=== PATIENT | male | born 1990 | race Caucasian/White ===

== ENCOUNTER 2016-10-30 16:00 | Inpatient (IN) | payer OTHER ==
[~2016-10-30] VITALS: Ht 185.4 cm; Wt 68.9 kg
--- NOTE | ~2016-10-30 | PA ---
Unit #: [id number] #: [id number] Patient: AGNIESZKA NUNEZ [id number] [place] [address] [id number] I MR#: [id number] NAME: AGNIESZKA NUNEZ ROOM: 82 Age: 26 Sex: M Admission Date: 10/30/2016 : 1990 Date of Assessment: 10/31/2016 Attending Physician: Remberto Coy M.D. Admitting Physician: Remberto Coy M.D. Primary Care Physician: Primary Care Physician No PSYCHIATRIC ASSESSMENT IDENTIFYING INFORMATION The patient is a 26-year-old white male admitted to the hospital with a history of alcohol, Xanax, Methamphetamine, and heroin abuse. CHIEF COMPLAINT Need to detox. INFORMANT(S) Patient, reliability is fair. HISTORY OF PRESENT ILLNESS The patient is a 26-year-old white male who reports no previous chemical dependence or other psychiatric treatment. He is admitted given his increasing substance use including abuse of alcohol, Xanax, methamphetamine, and heroin. He does admit to intravenous heroin use. The patient denied suicidal ideation at the time of admission. On admission, the patient's COWS score was a 14 and his CIWA 20. The patient denies current suicidal or homicidal ideation and denies any psychotic symptoms. He denies prior chemical dependence or other psychiatric treatment. PAST PSYCHIATRIC HISTORY Noncontributory. PAST MEDICAL HISTORY The patient has a history of lymphoma at the age of 13 and reports a history of kidney failure at the age of 6 or 7. He is currently on no prescribed medications. MEDICATIONS None. ALLERGIES None FAMILY HISTORY Noncontributory. SOCIAL HISTORY The patient reports substance use as noted previously. 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 MENTAL STATUS EXAMINATION Examination at this time reveals the patient to be a well-developed Unit #: [id number] #: [id number] Patient: AGNIESZKA NUNEZ well-nourished white male appearing stated age. He appears to be in moderate physical distress related to substance withdrawal. He is awake, alert, and oriented in all spheres. His mood is dysphoric, his affect constricted. Speech is generally well coherent. There are no gross deficits in memory or cognition noted. Intelligence is judged to be in the average range based on fund of knowledge. The patient is cooperative throughout the interview. He is currently denying suicidal or homicidal ideation or psychotic features. Judgment and insight appear to be intact. ASSETS AND LIABILITIES The patient's assets: Motivation for change. Liabilities: Lack of resources. DIAGNOSTIC IMPRESSION 1. Alcohol use disorder. 2. Methamphetamine disorder. 3. Cocaine use disorder. 4. Cannabis use disorder. 5. Sedative hypnotic use disorder. TREATMENT PLAN The patient remains hospitalized for safety and stabilization. Routine detoxification protocol has been initiated. The patient will participate in appropriate order of milieu activities. ESTIMATED LENGTH OF STAY 3 to 5 days. Dictated by... Remberto Coy M.D. Nikki TD: 10/31/2016 14:46 JOB #: [id number] PSYCHIATRIC ASSESSMENT Page 1 of 1 X Remberto Coy MD X PSYCHIATRIC ASSESSMENT
--- NOTE | ~2016-10-30 | HP ---
Unit #: [id number] #: [id number] Patient: AGNIESZKA NUNEZ [id number] [place] [address] [id number] I MR#: [id number] NAME: AGNIESZKA NUNEZ ROOM: P182 Age: 26 Sex: M Admission Date: 10/30/2016 : 1990 Attending Physician: Remberto Coy M.D. Admitting Physician: Remberto Coy M.D. Primary Care Physician: Primary Care Physician No HISTORY AND PHYSICAL HISTORY OF PRESENT ILLNESS The patient is a 26-year-old male admitted to [facility] on 10/30/2016 for polysubstance abuse. PAST MEDICAL HISTORY 1. History of lymphoma at age 13. 2. History of kidney failure as a child. PAST SURGICAL HISTORY None noted. SOCIAL HISTORY He is employed. He lives with his fiance. He smokes 1-1/2 packs of cigarettes daily. Drinks 1 to 2 pints of whiskey per day and uses heroin, methamphetamines, and Xanax. FAMILY MEDICAL HISTORY Noncontributory. ALLERGIES No known drug allergies. CURRENT MEDICATIONS The patient is not on any home medications. REVIEW OF SYSTEMS CONSTITUTIONAL: No fever or chills. HEENT: Denies any sore throat, ear pain or runny nose. CARDIOVASCULAR: Denies chest pain, irregular heart rhythm or palpitations. CHEST: Denies shortness of breath or cough. No hemoptysis. GASTROINTESTINAL: Denies nausea, vomiting, diarrhea or chronic constipation. ENDOCRINE: Denies history of increased thirst or urination. No recent significant weight loss or gain. GENITOURINARY: Denies dysuria, frequency, or hematuria. SKIN: Denies any rashes. HEMATOLOGIC: Denies history of increased bleeding or bruising. MUSCULOSKELETAL: Denies any hot, swollen joints. No generalized muscle pain. NEUROLOGIC: Denies problems with vision or speech. No frequent, severe headaches. No numbness, tingling or weakness in any extremities. Denies loss of bladder or bowel control. Unit #: [id number] #: [id number] Patient: AGNIESZKA NUNEZ PHYSICAL EXAMINATION GENERAL: He is awake, alert, and oriented in no acute distress. VITAL SIGNS: Temperature 98.0, heart rate 70, respirations 18, blood pressure 176/87. HEIGHT: 6 feet 1. WEIGHT: 152 pounds. SKIN: Warm and dry without rash or lesion. HEENT: Normocephalic. TMs not viewed. Oral and nasal passages clear. Conjunctivae clear. PERRLA. EOMs intact. NECK: Supple without lymphadenopathy or thyromegaly. HEART: Regular rate and rhythm without murmur. LUNGS: Clear. ABDOMEN: Soft, nontender. : Not done. EXTREMITIES: No evidence of cyanosis, clubbing or edema. Moves all without focal deficit. NEUROLOGICAL: Grossly within normal limits. Cranial Nerves: II: Visual muller are intact. III, IV AND : Extraocular movements are intact. Pupils are equal, round and reactive to light. V: Facial sensation is grossly normal. VII: Facial movements and expression are normal. VIII: Auditory acuity grossly intact. IX, X: Uvula is midline. Phonation is normal. XI: Patient shrugs shoulders and turns head normally. XII: Tongue protrudes in the midline. Sensory and Motor Function: Sensory and motor sensation is grossly normal. Motor: moves all extremities well. IMPRESSION 1. Psychiatric admission. 2. History of lymphoma. 3. History of kidney failure. RECOMMENDATIONS PSYCHIATRIC: Per psychiatrist. MEDICAL: No contraindication to participate in this facility activities. MEDICAL PROGNOSIS Good. MEDICAL CONDITION Stable. Dictated by... Maria Victoria Leach/konstantin TD: 10/31/2016 15:21 JOB #: [id number] Unit #: [id number] #: [id number] Patient: AGNIESZKA NUNEZ HISTORY AND PHYSICAL Page 1 of 1 X ZENON DE LOS SANTOS APRN HISTORY AND PHYSICAL
--- NOTE | ~2016-10-30 | DS ---
Unit #: [id number] #: [id number] Patient: AGNIESZKA NUNEZ [id number] [facility] [address] [place] [address] [id number] I MR#: [id number] NAME: AGNIESZKA NUNEZ ROOM: 82 Age: 26 Sex: M Admission Date: 10/30/2016 : 1990 Discharge Date: 11/02/2016 Attending Physician: Remberto Coy M.D. Primary Care Physician: Primary Care Physician No DISCHARGE SUMMARY REASON FOR ADMISSION The patient is a 26-year-old white male, admitted with abuse of alcohol, Xanax, methamphetamine, and heroin. HOSPITAL COURSE The patient was admitted to the [facility] unit and placed on routine detoxification protocol to cover alcohol opioids and sedative hypnotics. The patient's detox was a surprisingly uneventful one. He was pleasant and cooperative in his interactions with peers and staff, though his participation within the therapeutic milieu left a bit to be desired. By 11/02/2016, the patient requested discharge and it was so ordered. FINAL DIAGNOSES Alcohol use disorder; methamphetamine use disorder; cocaine use disorder; cannabis use disorder; sedative hypnotic use disorder. DISPOSITION ON DISCHARGE No psychotropic or other medications were ordered at the time of discharge. FOLLOWUP Followup will take place through the auspices of community mental health resources and the chemical dependency intensive outpatient program provided by this facility. PROGNOSIS The patient's prognosis is considered fair. Dictated by... Remberto Coy M.D. NORMA/najma TD: 11/02/2016 17:27 JOB #: [id number] Unit #: [id number] #: [id number] Patient: AGNIESZKA NUNEZ DISCHARGE SUMMARY Page 1 of 1 X Remberto Coy MD X DISCHARGE SUMMARY
--- NOTE | ~2016-10-30 | PN ---
Unit #: [id number] #: [id number] Patient: AGNIESZKA NUNEZ [id number] [facility] [address] [place] [address] [id number] MR#: [id number] NAME: AGNIESZKA NUNEZ ROOM: [facility] Age: 26 Sex: M Admission Date: 10/30/2016 : 1990 Attending Physician: Remberto Coy M.D. Admitting Physician: Remberto Coy M.D. Primary Care Physician: Primary Care Physician Kennedi MARIANO PROGRESS NOTES DATE 11/01/2016 DISCUSSION The patient complains of poor sleep last evening but otherwise is in bright spirits. He has been prescribed some vistaril for p.r.n. anxiety. Should he sustain progress we will likely look at discharge tomorrow and I will discontinue melatonin and begin trazodone on a p.r.n. basis for sleep this evening. Dictated by... Remberto Coy M.D. CB/kj TD: 11/01/2016 23:43 JOB #: [id number] [facility] PROGRESS NOTES Page 1 of 1 X Remberto Coy MD PROGRESS NOTE
[~2016-10-30 16:00] MED LIST: ALBUTEROL17 GM INH; AUGMENTIN PO; DICLOFENAC PO; DOXYCYCLINE HY100 M1 PO; FLEXERIL PO; FLEXERIL10 M1 PO; HYDROCODON-ACE1 EAC7 PO; IBUPROFEN800 MG PO; LORTAB 5/500 TA1 TA1 PO; MOTRIN600 MG PO; NAPROXEN PO; NO MEDICATIONS; PREDNISONE10 MG/DOSE PO; ULTRAM PO; VICODIN 5/500 T1 TAB PO; VOLTAREN75 MG PO
[2016-11-01 13:59] LABS: BASOPHIL% 0.3 % (0-2.5); EOSINOPHIL% 0.3 % (0.0-7.0); HEMATOCRIT 44.9 % (38.0-50.0); HEMOGLOBIN 15.1 gm/dL (13.0-16.0); LYMPHOCYTE# 0.8 X10e3 (1.0-3.5); LYMPHOCYTE% 12.8 % (17.0-45.0); MEAN CELL VOLUME 89.8 FL (83-96); MEAN CORPUSCULAR HEMOGLOBIN 30.1 PG (28-34); MEAN CORPUSCULAR HGB CONC 33.6 g/dL (30-36); MEAN PLATELET VOLUME 8.2 FL (6.5-11.5); MONOCYTE# 0.4 X10e3 (0-1.0); MONOCYTE% 5.9 % (3.0-12.0); NEUTROPHIL# 5.1 X10e3 (1.5-7.1); NEUTROPHIL% 80.7 % (40-75); PLATELET COUNT 210 X10e3 (140-420); WHITE BLOOD COUNT 6.4 X10e3 (4.0-10.5)
[2016-11-01 14:11] LABS: ALBUMIN SERUM 3.6 g/dL (3.5-5.0); BILIRUBIN,TOTAL 0.3 mg/dL (0.2-2.0); CALCIUM SERUM 9.4 mg/dL (8.4-10.2); CREATININE SERUM 0.6 mg/dL (0.6-1.4); GLOM FILT RATE Estimated 137.8 mL/min (>60); POTASSIUM 4.6 mmol/L (3.5-5.1); PROTEIN TOTAL SERUM 6.6 g/dL (6.0-8.3)
[2016-11-01 14:14] LABS: DIFF IND NO
== END 2016-11-02 14:20 | disposition home or self-care (01) | DRG 897 ==
LOC: P1E 18:29
PROVIDERS: Specialist
PROC: HZ2ZZZZ Detoxification Services for Substance Abuse Treatment (ICD-10-PCS; principal; 2016-10-31)
DX: F10.10 Alcohol abuse, uncomplicated (principal); F14.10 Cocaine abuse, uncomplicated; F15.10 Other stimulant abuse, uncomplicated; F12.10 Cannabis abuse, uncomplicated; F17.210 Nicotine dependence, cigarettes, uncomplicated; Z85.72 Personal history of non-Hodgkin lymphomas
CPT/HCPCS: 80053; 85025; 86592

== ENCOUNTER 2016-11-13 13:29 | Emergency (ER) | payer OTHER ==
[~2016-11-13] VITALS: Ht 182.9 cm; Wt 72.6 kg
== END 2016-11-13 14:25 | disposition home or self-care (01) ==
LOC: SED 13:29
DX: S61.242A Puncture wound with foreign body of right middle finger without damage to nail, initial encounter (principal); F17.210 Nicotine dependence, cigarettes, uncomplicated; Z23 Encounter for immunization; W22.8XXA Striking against or struck by other objects, initial encounter
CPT/HCPCS: 90471; 90715; 99283